=== PATIENT | female | born 1995 | race Caucasian/White ===

== ENCOUNTER 2017-05-17 16:50 | Emergency (ER) | payer OTHER ==
[~2017-05-17] VITALS: Ht 167.6 cm; Wt 90.7 kg
[2017-05-17 17:01] VITALS: BP 114/70
--- NOTE | 2017-05-17 22:21 | NUR ---
PATIENT LEFT WITHOUT BEING SEEN BY DR. NATARAJAN. NO FURTHER CARE PROVIDED FOR PATIENT.
== END 2017-05-17 22:21 | disposition left against medical advice (07) ==
LOC: MED 16:50
DX: J02.9 Acute pharyngitis, unspecified (principal); R51 Headache; Z53.21 Procedure and treatment not carried out due to patient leaving prior to being seen by health care provider